=== PATIENT | female | born 1965 | race Caucasian/White ===

== ENCOUNTER 2016-02-25 09:00 | Outpatient (CLI) | payer OTHER | END 2016-02-25 09:01 | disposition home or self-care (01) | DX: R30.0 Dysuria (principal) ==

== ENCOUNTER 2016-03-03 09:11 | Outpatient (CLI) | payer OTHER | END 2016-03-03 09:12 | disposition home or self-care (01) | DX: R00.2 Palpitations (principal) ==

== ENCOUNTER 2017-02-07 16:45 | Outpatient (CLI) | payer OTHER ==
--- NOTE | 2017-02-07 18:51 | MRI Preliminary Report ---
Exam: MRI FEMUR/THIGH RT W/O IMPRESSION: Complete tear of the right hamstring tendon origin with at least 5 cm of retraction. RADIA MUSCULOSKELETAL RADIOLOGY SECTION The call report notification system was initiated by Dr. Naima Diane at 18:43 hrs on 02/07/17. The above findings were discussed with Pina Pradhan by Dr. Naima Diane at 18:49 hrs on 02/07/17. SITE ID: [id number]
--- NOTE | 2017-02-07 19:01 | MRI Report ---
EXAM: RIGHT FEMUR/THIGH MRI WITHOUT CONTRAST EXAM DATE: 02/07/2017 06:17 PM. CLINICAL HISTORY: Possible right thigh muscle tear. Fall. Hyperextension injury in the right leg. COMPARISON: None. TECHNIQUE: Multiplanar, multisequence T1-weighted and fluid-sensitive sequences of the femur/thigh wi thout contrast. Other: None. FINDINGS: Bones: No fractures or subluxations. No marrow edema. No bone lesions. Joint Spaces: Visualized portions of the hip and knee joints are unremarkable on these large field-of -view images. Muscles/tendons: The right hamstring tendon origin is completely torn. There is retraction of at leas t 5 cm. Edema is seen at the gap as well as within the proximal hamstring musculature. Some hematoma is seen in the fascial plane near the myotendinous junction. Some mild muscle edema is seen in the me dial adductor muscles. Other: The visualized sciatic and femoral nerves are unremarkable. The subcutaneous tissues are unrem arkable. IMPRESSION: Complete tear of the right hamstring tendon origin with at least 5 cm of retraction. RADIA MUSCULOSKELETAL RADIOLOGY SECTION The call report notification system was initiated by Dr. Naima Diane at 18:43 hrs on 02/07/17. The above findings were discussed with Pina Pradhan by Dr. Naima Diane at 18:49 hrs on 02/07/17. Referring Provider Line: [phone] SITE ID: [id number]
== END 2017-02-07 16:46 | disposition home or self-care (01) ==
LOC: DI 16:45
PROVIDERS: ATTEND Family Medicine
DX: S76.811A Strain of other specified muscles, fascia and tendons at thigh level, right thigh, initial encounter (principal)

== ENCOUNTER 2017-05-23 15:30 | Outpatient (CLI) | payer OTHER | END 2017-05-23 15:31 | disposition home or self-care (01) | LOC: SC 15:30 | PROVIDERS: ATTEND Internal Medicine Pulmonary Disease | DX: G47.10 Hypersomnia, unspecified (principal); R53.83 Other fatigue; R06.83 Snoring | CPT/HCPCS: 99203; 99212 ==

== ENCOUNTER 2017-08-02 20:37 | Outpatient (CLI) | payer OTHER | END 2017-08-02 20:38 | disposition home or self-care (01) | LOC: SC 20:37 | PROVIDERS: ATTEND Internal Medicine Pulmonary Disease | DX: G47.33 Obstructive sleep apnea (adult) (pediatric) (principal) | CPT/HCPCS: 95810 ==

== ENCOUNTER 2017-08-31 10:17 | Outpatient (CLI) | payer OTHER | END 2017-08-31 10:18 | disposition home or self-care (01) | LOC: SC 10:17 | PROVIDERS: ATTEND Nurse Practitioner Family | DX: G47.33 Obstructive sleep apnea (adult) (pediatric) (principal) | CPT/HCPCS: 99212; 99215 ==

== ENCOUNTER 2017-10-11 08:26 | Outpatient (CLI) | payer OTHER | END 2017-10-11 08:27 | disposition home or self-care (01) | LOC: DI 08:26 | PROVIDERS: ATTEND Physician Assistant | DX: R60.9 Edema, unspecified (principal); R01.1 Cardiac murmur, unspecified | CPT/HCPCS: 93306 ==

== ENCOUNTER 2017-10-25 15:47 | Outpatient (CLI) | payer OTHER | END 2017-10-25 15:48 | disposition home or self-care (01) | LOC: SC 15:47 | PROVIDERS: ATTEND Nurse Practitioner Family | DX: G47.33 Obstructive sleep apnea (adult) (pediatric) (principal) | CPT/HCPCS: 99212; 99214 ==

== ENCOUNTER 2018-08-07 15:39 | Outpatient (CLI) | payer OTHER ==
--- NOTE | 2018-08-08 10:18 | Mammography Report ---
Reason: SCREENING MAMMO Procedure Date: 08/07/2018 Accession Number: [id number] / [id number] Procedure: SCOT - Screening Mammo w/Pj CPT Code: FULL RESULT: EXAM: Screening Mammo w/Pj DATE: 08/07/2018 4:25 PM CLINICAL HISTORY: Routine screening TECHNIQUE: (B) - Bilateral CC and MLO views were obtained. COMPARISON: 01/15/2016, 01/05/2015, 01/15/2013 PARENCHYMAL PATTERN: (A) - The breasts demonstrate scattered fibroglandular densities bilaterally. FINDINGS: No significant interval change. There are no suspicious masses, calcifications, or areas of distortion. IMPRESSION: Negative examination. BI-RADS category 1. RECOMMENDATION: (ANNUAL) - Recommend routine annual screening mammography. BI-RADS CATEGORY: (1) - Negative. STANDARD QUALIFYING STATEMENTS: 1. This examination was not reviewed with the aid of Computer-Aided Detection (CAD). 2. A negative or benign imaging report should not preclude biopsy if clinically suspicious findings are present. 3. Dense breasts may obscure an underlying neoplasm. 4. This examination was reviewed with the aid of 3D breast imaging (tomosynthesis).
== END 2018-08-07 15:40 | disposition home or self-care (01) ==
LOC: DI 15:39
DX: Z12.31 Encounter for screening mammogram for malignant neoplasm of breast (principal)
CPT/HCPCS: 77063; 77067

== ENCOUNTER 2018-11-27 16:14 | Outpatient (CLI) | payer OTHER ==
[2018-11-27 17:14] VITALS: BP 124/70
--- NOTE | 2018-11-27 17:14 | SLEEP CARE CONSULTATION ---
Information from patient questionnaire entered by Jazmine Dennis. I have reviewed and concur with the information entered by Jazmine Dennis. This document represents the service I personally performed and the decisions made by me, Samia Leroy, RN, MSN, [employer] APPRENTICE. History of Present Illness Previous diagnosis: Severe, Obstructive Sleep Apnea-Hypopnea Syndrome AHI: 40.3 Reason for CPAP/BiPAP follow up: other (10 month ) Equipment type: CPAP Equipment obtained from: [facility] Mask style: Nasal pillows Mask brand: Resmed Backup mask available: No (keep current mask when replaced for a spare. ) Last cushion change: a week ago CPAP Compliance Data - Data Reviewed with Patient Average duration of nightly device use: 6.4 Compliance rate %: 95.6 (180 days) Current pressure setting (cmH2O): 4-10 Humidity settin Heated hose settin Average residual AHI: 0.6 Average large leak: 46 sec Subjective Patient concerns: reports: aerophagia (most mornings and resolves by noon- mild distention and burping), air blowing in eyes (mask dislodging with new updated headgear ), mask leak noise (a couple times a week. ). denies: mask discomfort, condensation in mask/hose, nasal congestion, dry mouth, nose, throat, epistaxis Observed to snore while using device: No Current pressure setting perceived as: too high On therapy, patient: reports: awakening more refreshed, being more awake and alert during the day, more rested overall. denies: drowsiness while driving Initial [place] Sleepiness Scale score: 7 Current [place] Sleepiness Scale score: 3 Allergies and Home Medications Known drug allergies: Yes (codeine, pencillin, sulfa) Home medication list reviewed: Yes Allergy and home medication list: Furosemide 10mg tab one daily Zyrtec 10mg tab one daily PRN Review of Systems Review of systems same as previous: Yes Physical Exam Blood Pressure: 124/70 Cuff size: long Heart Rate: 80 O2 Saturation: 98 Height: 5 ft 2 in Weight: 217 lb 6.4 oz Body Mass Index: 39.7 BMI Classification: Obesity Class 2 Impression and Plan 1. Obstructive Sleep Apnea-Hypopnea Syndrome, severe, with good treatment compliance and good apnea control. On CPAP therapy, the patient is more rested overall. However, with weight loss she has been experiencing daily aerophagia symptoms and waking with the presure too high at times so I will reduce her autoCPAP pressure to 4-8cmH20. She is to contact if symptoms persist. She was at a lower weight and is working on losing more weight again. Thus I discussed how continued weight loss will lower her apnea risk as well as her CPAP pressure. Symptoms to report for further report for further adjustment. Her current weight loss lowered her BMI to 39. We looked at BMI with her goal is to get to 175. I explained how her continued weight loss will reduce her BMI and overall health risks as well. For mask concerns, she is to contact [employer] to see if other mask options before ordering. I showed her several mask samples. She was also advised to contact [employer] customer service about the changes in mask that are not as comfortable. Patient's apnea severity and rationale for treatment to reduce apnea, improve sleep quality and reduce cardiovascular and cerebrovascular events was reviewed. I also reviewed the benefit of consistent device use of CPAP for hypertension, depression/anxiety . * * Change CPAP pressure to 4-8 cmH2O * Notify me if snoring with mask or feeling that the pressure is too much or too little * Continue to lose weight * Consider changing mask style. * Return for follow up in 1 year , or sooner if concerns arise I spent 100% of this 30 minute visit face to face with the patient with greater than 50% of this was spent time counseling the patient and coordination of care.
== END 2018-11-27 16:15 | disposition home or self-care (01) ==
LOC: SC 16:14
PROVIDERS: ATTEND Nurse Practitioner Family
DX: G47.33 Obstructive sleep apnea (adult) (pediatric) (principal); E66.9 Obesity, unspecified; Z68.39 Body mass index [BMI] 39.0-39.9, adult
CPT/HCPCS: 99212; 99214

== ENCOUNTER 2019-12-05 17:12 | Outpatient (CLI) | payer OTHER ==
--- NOTE | 2019-12-06 08:39 | Ultrasound Report ---
PROCEDURE: Chest INDICATIONS: LT SUPRACLAVICULAR LIPOMS TECHNIQUE: Real-time scanning was performed, and a suitable site was marked by the cma or lpn for thoracentesis to be performed by the referring clinician. COMPARISON: None. FINDINGS: Possible lipoma left supraclavicular area. Sonographic evaluation in the area of current c linical concern did not identify a specific area of lipoma or other cystic or solid mass in the left supraclavicular area. Several small lymph nodes, normal in morphology, were incidentally noted in thi s general region. The largest node visualized measured 0.6 x 1.2 x 2.2 cm. IMPRESSION: A lipoma is not found, and an underlying cystic or solid mass is not found. A follow-up by CT scannin g with contrast may be warranted for more accurate visualization of the region. Reviewed by: Ivan Marshall MD on 12/06/2019 8:38 AM PDT Approved by: Ivan Marshall MD on 12/06/2019 8:38 AM PDT Station ID: [id number]
== END 2019-12-05 17:13 | disposition home or self-care (01) ==
LOC: DI 17:12
PROVIDERS: ATTEND Physician Assistant
DX: D17.9 Benign lipomatous neoplasm, unspecified (principal)
CPT/HCPCS: 76604

== ENCOUNTER 2019-12-31 16:36 | Outpatient (CLI) | payer OTHER ==
--- NOTE | 2019-12-31 16:55 | SLEEP CARE CONSULTATION ---
Information from patient questionnaire entered by Genesis Gotti. I have reviewed and concur with the information entered by Genesis Gotti. This document represents the service I personally performed and the decisions made by , Nury Denson ARNP. History of Present Illness Service Date and Time: 12/31/2019 1636 Previous diagnosis: Severe, Obstructive Sleep Apnea-Hypopnea Syndrome AHI: 40.3 Reason for follow up: annual (last seen 11/2018) Equipment type: CPAP Equipment obtained from: [facility] (getting supplies as needed) Mask style: Nasal pillows Backup mask available: No (will keep mask when it is replaced for a backup) Last cushion change: last week Year and Where: 2017 [facility] Type of Sleep Study: Polysomnography HPI additional information: SISSY BRUNO was diagnosed to have severe, AHI 40.3, obstructive sleep apnea- hypopnea syndrome and returned today for CPAP therapy annual follow-up. CPAP Compliance Data - Data Reviewed with Patient Average duration of nightly device use: 7 h 3 min Compliance rate %: 99.4 Current pressure setting (cmH2O): 4-8 Humidity settin Heated hose settin Average residual AHI: 0.9 Central apnea: 0.0 Obstructive apnea: 0.0 Average large leak: 3 min 4 sec Subjective Patient concerns: reports: condensation in mask/hose. denies: aerophagia, mask discomfort, air blowing in eyes, mask leak noise, nasal congestion, dry mouth, nose, throat, epistaxis, other Observed to snore while using device: No Current pressure setting perceived as: comfortable On therapy, patient: reports: sleeping better, awakening more refreshed, being more awake and alert during the day, more rested overall. denies: drowsiness while driving Initial [place] Sleepiness Scale score: 7 (in 2018) Current [place] Sleepiness Scale score: 0 Allergies and Home Medications Home medication list reviewed: Yes (no changes) Review of Systems Review of systems same as previous: Yes (no changes) Physical Exam Heart Rate: 73 O2 Saturation: 96 Height: 5 ft 2 in Weight: 244 lb Body Mass Index: 44.6 BMI Classification: Morbidly Obese Impression and Plan 1. Obstructive Sleep Apnea-Hypopnea Syndrome, severe, with good treatment compliance and good apnea control. On CPAP therapy, the patient has better sleep quality and is more rested overall. She has been getting occasional dry mouth. I reviewed with patient that oral dryness can be reduced by adjusting humidity setting higher or heated hose lower or by adjusting both settings. Patient's apnea severity and rationale for treatment to reduce apnea, improve sleep quality and reduce cardiovascular and cerebrovascular events was reviewed. I also reviewed the benefit of consistent device use of CPAP for hypertension, depression and anxiety. Patient has gained weight due to the current Covid pandemic restrictions. Currently patients BMI is 44.6. Obesity increases the risk of apnea, CPAP pressure requirements and overall health risks especially cardiovascular and diabetes. Thus patient is advised to lose weight. * Continue auto CPAP pressure at 4-8 cmH2O * Notify me if snoring with mask or feeling that the pressure is too much or too little * Attempt to lose weight * Call this office if any problems using CPAP * Return for follow up in 1 year, or sooner if concerns arise Counseling Topics: Spare mask, Weight loss health impact Visit Type: In Office Time Spent with Patient (minutes): 15 Provider Statement: I spent 100% of the Face to Face Visit with the patient with greater than 50% spent counseling the patient and coordination of care.
== END 2019-12-31 16:37 | disposition home or self-care (01) ==
LOC: SC 16:36
PROVIDERS: ATTEND Nurse Practitioner Family
DX: G47.33 Obstructive sleep apnea (adult) (pediatric) (principal); E66.01 Morbid (severe) obesity due to excess calories; Z68.41 Body mass index [BMI] 40.0-44.9, adult
CPT/HCPCS: 99212; 99213

== ENCOUNTER 2020-03-22 08:00 | Outpatient (CLI) | payer OTHER | END 2020-03-22 23:59 | disposition home or self-care (01) | LOC: LAB.R 08:00 | PROVIDERS: ATTEND Family Medicine | DX: R39.9 Unspecified symptoms and signs involving the genitourinary system (principal) | CPT/HCPCS: 87086 ==

== ENCOUNTER 2020-08-20 08:22 | Outpatient (CLI) | payer OTHER ==
--- NOTE | 2020-08-21 11:36 | Mammography Report ---
BILATERAL DIGITAL SCREENING MAMMOGRAM 3D/2D: 08/20/2020 CLINICAL: Routine screening. Comparison is made to exams dated: 08/07/2018 mammogram, 01/15/2016 mammogram, 01/05/2015 mammogram, mammogram, 01/17/2011 ultrasound, and 01/17/2011 mammogram - [facility]. There are scattered fibroglandular elements in both breasts. No significant masses, calcifications, or other findings are seen in either breast. There has been no significant interval change. IMPRESSION: NEGATIVE There is no mammographic evidence of malignancy. A 1 year screening mammogram is recommended. This exam was interpreted at Station ID: [id number]. NOTE: For mammograms, a report in lay terms will be sent to the patient. Approximately 15% of breast malignancies will not be visualized mammographically. In the management of a palpable breast mass, a negative mammogram must not discourage biopsy of a clinically suspicious lesion. Electronically Signed By: Farhat Kline M.D., jr/mariella:08/20/2020 10:43:36 ACR BI-RADS Category 1: Negative 3341F PARENCHYMAL PATTERN: (A) - The breast(s) demonstrate(s) scattered fibroglandular densities. BI-RADS CATEGORY: (1) - 1 RECOMMENDATION: (ANNUAL) - Recommend routine annual screening mammography. [id number] 1 year screening LATERALITY: (B)
== END 2020-08-20 08:23 | disposition home or self-care (01) ==
LOC: DI 08:22
DX: Z12.31 Encounter for screening mammogram for malignant neoplasm of breast (principal)

== ENCOUNTER 2020-08-31 12:26 | Outpatient (CLI) | payer OTHER ==
--- NOTE | 2020-08-31 17:32 | Ultrasound Report ---
PROCEDURE: Head or Neck Soft Tissue INDICATIONS: CERVICAL LYMPHADENOPATHY TECHNIQUE: Real time scanning was performed of the neck region of interest, with image documentation . COMPARISON: None. FINDINGS: Multiple grayscale and color Doppler images of the neck were acquired. Targeted evaluation of the palpable area of concern demonstrates multiple enlarged cervical chain lymph nodes in the left neck, inferior to the left submandibular gland. Several of these enlarged lymph nodes demonstrate lo ss of central fatty hilum and reniform shape with the largest 2 measuring 1.4 x 1.3 x 1.4 cm and 2.0 x 0.8 x 1.4 cm. Cortical thickness measures up to 6 mm. For comparison on the right side, multiple pr ominent lymph nodes are also seen with preservation of reniform morphology and central fatty hilum. H owever, one demonstrates loss of fatty hilum measuring approximately 1.2 x 0.7 x 0.9 cm. No focal mas s lesions identified. IMPRESSION: Multiple left-sided cervical chain lymph nodes correlating with patient directed palpable area of con cern which localized just inferior to the level of the submandibular gland. Several of these demonstr ate loss of central fatty hilum and reniform morphology. Additionally, comparison imaging of the righ t neck demonstrated 1 prominent lymph node also demonstrating loss of central fatty hilum. Although t hese may represent reactive lymphadenopathy, malignant etiologies not excluded. Recommend further berenice racterization with contrast-enhanced CT of the neck. Reviewed by: David Darling MD on 08/31/2020 5:31 PM PDT Approved by: David Darling MD on 08/31/2020 5:31 PM PDT Station ID: [id number]
== END 2020-08-31 12:27 | disposition home or self-care (01) ==
LOC: DI 12:26
PROVIDERS: ATTEND Family Medicine
DX: R59.0 Localized enlarged lymph nodes (principal)

== ENCOUNTER 2020-09-17 15:22 | Outpatient (CLI) | payer OTHER ==
[2020-09-17] MEDS ORDERED: IOPAMIDOL-300 100 ML VIAL ONE (15:48)
[2020-09-17] MEDS ORDERED: IOPAMIDOL-300 100 ML VIAL IVP ONE (18:40)
--- NOTE | 2020-09-18 08:48 | CT Report ---
PROCEDURE: SOFT TISSUE NECK W INDICATIONS: CERVICAL LYMPHADENOPATHY CONTRAST: IV CONTRAST: Isovue 300 ml: 100 PO CONTRAST: *NO PO CONTRAST TECHNIQUE: After the administration of intravenous contrast, 3.0 mm axial sections acquired from the sella to th e aortic arch. Additional oblique axial 3.0 mm sections acquired through the pharynx. 3 mm thick co nhan reformats were generated. For radiation dose reduction, the following was used: automated exp osure control, adjustment of mA and/or kV according to patient size. COMPARISON: Ultrasound dated 08/31/2020 FINDINGS: Image quality: Excellent. Lymph nodes: There are asymmetrically enlarged left-sided cervical lymph nodes, for example left leve l 2 lymph node measures 1.5 x 1.0 cm on image 66/3. Left level 3 lymph node measuring 1.5 x 0.8 cm im age 71/3. Posterior jugular chain borderline enlarged lymph node on the left measuring 1.0 x 0.6 cm i mage 75/3. These findings correspond to the ultrasound appearance of the prior study. Vessels: Visualized vasculature appears patent. Neck spaces: The oropharynx, nasopharynx, and pharynx demonstrate no mucosal lesions. The vocal cor ds, false vocal cords, pyriform sinuses, epiglottis, vallecula, and tongue base all appear normal. E xtramucosal spaces appear unremarkable. Glands: The parotid and submandibular glands appear normal. The thyroid is normal in size and there are no incidental findings. Miscellaneous: Visualized brain and orbits appear normal. Lung apices appear clear. Superficial so ft tissues appear normal. Bones: No suspicious bony lesions. Visualized sinuses and mastoids appear unremarkable. IMPRESSION: Multiple, mildly enlarged left cervical lymph nodes as detailed above, technically nonspecific etiolo gy. This could be reactive, versus metastatic disease or lymphoma. Please correlate clinically and re commend clinical management. CLINICAL RECOMMENDATION STATEMENTS: In patients <35 years with an ITN detected on CT, MRI, or extrathyroidal ultrasound, the Committee re commends further evaluation with dedicated thyroid ultrasound if the nodule is ?1 cm and has no suspi cious imaging features, and if the patient has normal life expectancy. In patients ?35 years with an ITN detected on CT, MRI, or extrathyroidal ultrasound, the Committee re commends further evaluation with dedicated thyroid ultrasound if the nodule is ?1.5 cm and has no juliana picious imaging features, and if the patient has normal life expectancy. (ACR, 2014) Reviewed by: Cristo Trivedi MD on 09/18/2020 8:47 AM PDT Approved by: Cristo Trivedi MD on 09/18/2020 8:47 AM PDT Station ID: [id number]
== END 2020-09-17 15:23 | disposition home or self-care (01) ==
LOC: DI 15:22
PROVIDERS: ATTEND Family Medicine
DX: R59.0 Localized enlarged lymph nodes (principal)
CPT/HCPCS: 70491; Q9967

== ENCOUNTER 2020-10-22 16:19 | Outpatient (CLI) | payer OTHER ==
--- NOTE | 2020-10-22 16:56 | SLEEP CARE CONSULTATION ---
Information from patient questionnaire entered by Genesis Gotti. I have reviewed and concur with the information entered by Genesis Gotti. This document represents the service I personally performed and the decisions made by , Nury Denson ARNP. History of Present Illness Service Date and Time: 10/22/2020 1619 Previous diagnosis: Severe, Obstructive Sleep Apnea-Hypopnea Syndrome AHI: 40.3 Reason for follow up: other (10-month followup - CPAP recall) Equipment type: CPAP Equipment obtained from: [facility] (getting supplies but nothing but problems) Mask style: Nasal pillows Backup mask available: No Year and Where: 2018 [facility] Type of Sleep Study: Polysomnography HPI additional information: SISSY BRUNO was diagnosed to have severe, AHI 40.3, obstructive sleep apnea- hypopnea syndrome and returned today for CPAP therapy 10 month follow-up. CPAP Compliance Data - Data Reviewed with Patient Average duration of nightly device use: 6 h 42 min Compliance rate %: 96.1 Current pressure setting (cmH2O): 4-8 Humidity setting: Off Heated hose settin Average residual AHI: 1.1 Average large leak: 1 min 46 sec Subjective Missed days of use due to: reports: other (Recall of equipment) Patient concerns: reports: air blowing in eyes. denies: aerophagia, mask discomfort, mask leak noise, condensation in mask/hose, nasal congestion, dry mouth, nose, throat, epistaxis, other Observed to snore while using device: No Current pressure setting perceived as: comfortable On therapy, patient: reports: sleeping better, awakening more refreshed, being more awake and alert during the day, more rested overall. denies: drowsiness while driving Initial [place] Sleepiness Scale score: 7 (in 2018) Current [place] Sleepiness Scale score: 12 Allergies and Home Medications Home medication list reviewed: Yes (no changes) Review of Systems Review of systems same as previous: No (Lump in neck) Physical Exam Heart Rate: 101 O2 Saturation: 97 Height: 5 ft 2 in Weight: 250 lb Body Mass Index: 45.7 BMI Classification: Morbidly Obese Impression and Plan 1. Obstructive Sleep Apnea-Hypopnea Syndrome, severe, with good treatment compliance and good apnea control. On CPAP therapy, the patient has better sleep quality and is more rested overall. Patient is here to get a prescription to update her recalled device. She has found a lump in her neck in the recent months before the recall was announced. Patient has already registered their device for the recall. If patient has an older device that is not on the recall they may switch to using that in the meantime. Patient has spoken with her insurance and thinks they will replace her device. I will write a prescription for a replacement device and have the patient follow up one month after obtaining new device. Patient was encouraged to lose weight for their overall health and to reduce apneas. Patient voiced understanding and agreement with plan. Patient's apnea severity and rationale for treatment to reduce apnea, improve sleep quality and reduce cardiovascular and cerebrovascular events was reviewed. I also reviewed the benefit of consistent device use of CPAP for hypertension, depression and anxiety. * Continue auto CPAP pressure at 4-8 cmH2O * Update/replacment device for machine on recall * Update supplies as needed * Notify me if snoring with mask or feeling that the pressure is too much or too little * Attempt to lose weight * Call this office if any problems using CPAP * Return for follow up one month after obtaining new device, or sooner if concerns arise Counseling Topics: Spare mask, Weight loss health impact Visit Type: In Office Time Spent with Patient (minutes): 20 Provider Statement: I spent 100% of the Face to Face Visit with the patient with greater than 50% spent counseling the patient and coordination of care.
== END 2020-10-22 16:20 | disposition home or self-care (01) ==
LOC: SC 16:19
PROVIDERS: ATTEND Nurse Practitioner Family
DX: G47.33 Obstructive sleep apnea (adult) (pediatric) (principal); E66.01 Morbid (severe) obesity due to excess calories; Z68.42 Body mass index [BMI] 45.0-49.9, adult
CPT/HCPCS: 99212; 99213

== ENCOUNTER 2021-01-27 16:15 | Outpatient (CLI) | payer OTHER ==
[2021-01-27 16:44] VITALS: BP 135/75
--- NOTE | 2021-01-27 16:44 | SLEEP CARE CONSULTATION ---
Information from patient questionnaire entered by Carlee Jefferson MA. I have reviewed and concur with the information entered by Carlee Jefferson MA. This document represents the service I personally performed and the decisions made by , Nury Denson ARNP. History of Present Illness Service Date and Time: 01/27/2021 1615 Previous diagnosis: Severe, Obstructive Sleep Apnea-Hypopnea Syndrome AHI: 40.3 Reason for follow up: first compliance (1ST COMPLIANCE , SET UP 12/22 , ISA ) Equipment type: CPAP Equipment obtained from: [facility] (getting supplies but nothing but problems) Mask style: Nasal pillows Backup mask available: No (when she gets next supplies) Last cushion change: 1 week Year and Where: 2017 [facility] Type of Sleep Study: Polysomnography HPI additional information: SISSY BRUNO was diagnosed to have mild, AHI 40.3, obstructive sleep apnea- hypopnea syndrome and returned today for CPAP therapy first compliance follow- up. Sleep Study - Results Type of Sleep Study: Polysomnography Year and Where: 2017 [facility] CPAP Compliance Data - Data Reviewed with Patient Average duration of nightly device use: 6 hours 51 minutes Compliance rate %: 98 Current pressure setting (cmH2O): 4-8 Average residual AHI: 0.2 Central apnea: 0.0 Obstructive apnea: 0.0 Subjective Missed days of use due to: reports: other (PRADO RECALL,) Patient concerns: reports: air blowing in eyes. denies: aerophagia, mask discomfort, mask leak noise, condensation in mask/hose, nasal congestion, dry mouth, nose, throat, epistaxis, other Observed to snore while using device: No Current pressure setting perceived as: comfortable On therapy, patient: reports: sleeping better, awakening more refreshed, being more awake and alert during the day, more rested overall. denies: drowsiness while driving Initial Marshall Sleepiness Scale score: 7 (in 2018) Current Marshall Sleepiness Scale score: 4 Allergies and Home Medications Known drug allergies: Yes (C SUFA & CODEINE) Home medication list reviewed: Yes (no changes) Review of Systems Review of systems same as previous: Yes (no changes) Physical Exam Vital signs obtained and entered by: Micki HOLLEY Blood Pressure: 135/75 (RIGHT) Cuff size: wrist Heart Rate: 82 O2 Saturation: 95 (PAPER MASK) Height: 5 ft 2 in Weight: 250 lb (WITH CLOTHES) Body Mass Index: 45.7 BMI Classification: Morbidly Obese Impression and Plan 1. Obstructive Sleep Apnea-Hypopnea Syndrome, severe, with excellent treatment compliance and excellent apnea control. On CPAP therapy, the patient has better sleep quality and is more rested overall. Patient is satisfied with current CPAP therapy and has significant improvement of her AHI. She likes the new machine and is working well for her. Patient was encouraged to lose weight for their overall health and to reduce apneas. Patient's apnea severity and rationale for treatment to reduce apnea, improve sleep quality and reduce cardiovascular and cerebrovascular events was reviewed. I also reviewed the benefit of consistent device use of CPAP for hypertension, depression and anxiety. * Continue auto CPAP pressure at 4-8 cmH2O * Notify me if snoring with mask or feeling that the pressure is too much or too little * Attempt to lose weight * Call this office if any problems using CPAP * Return for follow up in 1 year, or sooner if concerns arise Counseling Topics: Spare mask, Weight loss health impact Visit Type: In Office Time Spent with Patient (minutes): 11 Provider Statement: I spent 100% of the Face to Face Visit with the patient with greater than 50% spent counseling the patient and coordination of care.
== END 2021-01-27 16:16 | disposition home or self-care (01) ==
LOC: SC 16:15
PROVIDERS: ATTEND Nurse Practitioner Family
DX: G47.33 Obstructive sleep apnea (adult) (pediatric) (principal); E66.01 Morbid (severe) obesity due to excess calories; Z68.42 Body mass index [BMI] 45.0-49.9, adult
CPT/HCPCS: 99212

== ENCOUNTER 2021-07-26 08:00 | Outpatient (CLI) | payer OTHER ==
--- NOTE | 2021-07-27 11:51 | XRAY Report ---
PROCEDURE: Knee 3 View RT INDICATIONS: SPRAIN OF R MCL TECHNIQUE: 3 views of the right knee(s) were acquired. COMPARISON: None. FINDINGS: Bones: No fractures or dislocations. Moderate medial compartment joint space loss. Slight lateral garcia bluxation of the patella. No suspicious bony lesions. Soft tissues: No joint effusion. No suspicious soft tissue calcifications. IMPRESSION: 1. Moderate medial compartment joint space loss. 2. No visible joint effusion. Reviewed by: Kecia Au MD on 07/27/2021 11:49 AM PDT Approved by: Kecia Au MD on 07/27/2021 11:49 AM PDT Station ID: [id number]
== END 2021-07-26 23:59 | disposition home or self-care (01) ==
LOC: DI.N 08:00
PROVIDERS: ATTEND Emergency Medicine
DX: M25.861 Other specified joint disorders, right knee (principal)

== ENCOUNTER 2022-04-19 08:04 | Outpatient (CLI) | payer OTHER ==
[2022-04-19 08:42] VITALS: BP 130/72
--- NOTE | 2022-04-19 08:42 | SLEEP CARE CONSULTATION ---
Information from patient questionnaire entered by Brooke Sandoval. I have reviewed and concur with the information entered by Brooke Sandoval. This document represents the service I personally performed and the decisions made by me, Nury Denson ARNP. History of Present Illness Service Date and Time: 04/19/2022 0804 Previous diagnosis: Severe, Obstructive Sleep Apnea-Hypopnea Syndrome AHI: 40.3 Reason for follow up: annual (LAST SEEN 01/2021) Equipment type: CPAP (RESMED Airsense 11 s/u 11/2020) Equipment obtained from: [facility] (getting supplies) Mask style: Nasal pillows Backup mask available: Yes (old mask) Last cushion change: Monday Year and Where: 2017 [facility] Type of Sleep Study: Polysomnography HPI additional information: SISSY BRUNO was diagnosed to have severe, AHI 40.3, obstructive sleep apnea-hypopnea syndrome and returned today for CPAP therapy annual follow-up. Sleep Study - Results Type of Sleep Study: Polysomnography Year and Where: 2017 [facility] CPAP Compliance Data - Data Reviewed with Patient Average duration of nightly device use: 7 HRS 8 MIN Compliance rate %: 100 (10/20/21-04/17/22; 180/180 days used) Current pressure setting (cmH2O): 4-8 (avg 8.0) Average residual AHI: 0.2 Central apnea: 0.0 Obstructive apnea: 0.0 Average large leak: 0.5 LPM Subjective Patient concerns: reports: air blowing in eyes, mask leak noise, dry mouth, nose, throat. denies: aerophagia, mask discomfort, condensation in mask/hose, nasal congestion, epistaxis Observed to snore while using device: Yes (a few times) Current pressure setting perceived as: too low On therapy, patient: reports: sleeping better, awakening more refreshed, being more awake and alert during the day, more rested overall. denies: drowsiness while driving Initial Hudson Sleepiness Scale score: 7 (in 2018) Current Hudson Sleepiness Scale score: 3 (04/19/22) Allergies and Home Medications Known drug allergies: Yes (codiene, penicillin, sulfa) Drug allergies reviewed: Yes Home medication list reviewed: Yes (no changes) Allergy and home medication list: Allergies codeine Allergy (Verified 04/18/22 08:34) Hives Penicillins Allergy (Verified 04/18/22 08:34) Hives Sulfa (Sulfonamide Antibiotics) Allergy (Verified 04/18/22 08:34) Hives Review of Systems Review of systems same as previous: Yes (no changes) Physical Exam Vital signs obtained and entered by: BROOKE Louise MA Blood Pressure: 130/72 (LEFT ARM) Cuff size: long Heart Rate: 79 O2 Saturation: 97 Height: 5 ft 2 in Weight: 259 lb 3.2 oz Body Mass Index: 47.4 BMI Classification: Morbidly Obese Impression and Plan 1. Obstructive Sleep Apnea-Hypopnea Syndrome, severe, with good treatment compliance and good apnea control. On CPAP therapy, the patient has better sleep quality and is more rested overall. Patient has significant improvement of their sleep apnea and is satisfied with current CPAP therapy. Patient has been having mild oral dryness. I advised her to adjust the humidity on her machine to accommodate for this. She voiced understanding. She states the air leaks and air in her eyes is just from turning over and her mask dislodging. She states she feels the pressure is a little too low and would appreciate more pressure. I will adjust her pressure to 4-9 cm H2O for patient comfort. Patient will let me know if the pressure becomes uncomfortable. Patient's apnea severity and rationale for treatment to reduce apnea, improve sleep quality and reduce cardiovascular and cerebrovascular events was reviewed. I also reviewed the benefit of consistent device use of CPAP for hypertension, depression and anxiety. 2. Obesity, unspecified. Currently patients BMI is 47.4. Obesity increases the risk of apnea, CPAP pressure requirements and overall health risks especially cardiovascular and diabetes. Thus patient is advised to lose weight. * Change auto CPAP pressure to 4-9 cmH2O * Update supplies * Notify me if snoring with mask or feeling that the pressure is too much or too little * Attempt to lose weight * Call this office if any problems using CPAP * Return for follow up in 1 year, or sooner if concerns arise Counseling Topics: Spare mask, Weight loss health impact Prescriptions: Device supplies Visit Type: In Office Time Spent with Patient (minutes): 20 Provider Statement: I spent 100% of the Face to Face Visit with the patient with greater than 50% spent counseling the patient and coordination of care.
== END 2022-04-19 08:05 | disposition home or self-care (01) ==
LOC: SC 08:04
PROVIDERS: ATTEND Nurse Practitioner Family
DX: G47.33 Obstructive sleep apnea (adult) (pediatric) (principal); E66.01 Morbid (severe) obesity due to excess calories; Z68.42 Body mass index [BMI] 45.0-49.9, adult
CPT/HCPCS: 99212; 99213

== ENCOUNTER 2022-12-14 18:12 | Outpatient (CLI) | payer OTHER ==
--- NOTE | 2022-12-15 10:12 | Ultrasound Report ---
PROCEDURE: Pelvic w/Transvaginal INDICATIONS: POST MENOPAUSAL BLEEDING TECHNIQUE: Real-time scanning was performed of the pelvic organs, with image documentation. Additional endovagi nal scanning was necessary due to incomplete visualization of the adnexal and endometrial structures by transabdominal scanning. COMPARISON: None. FINDINGS: Technical note examination is markedly limited secondary to patient body habitus. Uterus: Uterus is anteverted and normal in size at 7.2 x 5.3 x 4.5 cm. The myometrium is heterog eneous. The endometrium measures 10.3 mm in combined thickness. The endometrium is complex and there is a cystic foci present measuring 2 x 1 cm in maximal dimension. There is a small calcification in the posterior uterus measuring 7 mm in maximal dimension which may represent small calcified uterine fibroid. The ovaries are not definitely visualized. Other: No pathologic free abdominal or pelvic fluid. IMPRESSION: 1. Complex thickened appearing endometrium with cystic foci measuring 10.3 mm in maximal dimension. I f further evaluation is indicated endometrial biopsy may be of further clinical value. 2. Probable small calcified posterior uterine fibroid measuring 7 mm. 3. Technically limited examination secondary to patient body habitus. Reviewed by: Jori Jordan MD on 12/15/2022 10:11 AM PST Approved by: Jori Jordan MD on 12/15/2022 10:11 AM PST Station ID: [id number]
== END 2022-12-14 18:13 | disposition home or self-care (01) ==
LOC: DI 18:12
PROVIDERS: ATTEND Family Medicine
DX: N95.0 Postmenopausal bleeding (principal); R93.89 Abnormal findings on diagnostic imaging of other specified body structures

== ENCOUNTER 2023-02-10 07:45 | Outpatient (CLI) | payer OTHER ==
--- NOTE | 2023-02-13 11:46 | Mammography Report ---
BILATERAL DIGITAL SCREENING MAMMOGRAM 3D/2D: 02/10/2023 CLINICAL: Routine screening. Comparison is made to exams dated: 08/20/2020 mammogram, 08/07/2018 mammogram, 01/15/2016 mammogram, and 01/05/2015 mammogram - [facility]. There are scattered areas of fibroglandular density in both breasts (category b / 25%-50% glandular t issue). There is possible architectural distortion in the right breast at 11 o'clock posterior depth. This i s more prominent, though present previously. No other significant masses, calcifications, or other findings are seen in either breast. IMPRESSION: INCOMPLETE: NEEDS ADDITIONAL IMAGING EVALUATION The possible architectural distortion in the right breast is indeterminate. Additional views with po ssible ultrasound are recommended. This is more prominent, though present previously. Based on the Tyrer Cuzick model (a risk assessment model) the patients lifetime risk is 6.7% and her 10 year risk is 2.1%. According to the ACR, ACS, and NCCN guidelines, an annual breast MRI exam kristi g with mammogram is recommended if the patients lifetime risk is 20% or greater. This exam was interpreted at Station ID: [id number]. NOTE: For mammograms, a report in lay terms will be sent to the patient. Approximately 15% of breast malignancies will not be visualized mammographically. In the management of a palpable breast mass, a negative mammogram must not discourage biopsy of a clinically suspicious lesion. Electronically Signed By: James Suh M.D. lc/:02/10/2023 09:49:56 ACR BI-RADS Category 0: Incomplete 3340F PARENCHYMAL PATTERN: (A) - The breast(s) demonstrate(s) scattered fibroglandular densities. BI-RADS CATEGORY: (0) - 0 Mammo and US [id number] Immediate follow-up LATERALITY: (B)
== END 2023-02-10 07:46 | disposition home or self-care (01) ==
LOC: DI 07:45
DX: Z12.31 Encounter for screening mammogram for malignant neoplasm of breast (principal); R92.8 Other abnormal and inconclusive findings on diagnostic imaging of breast; R92.323 Mammographic fibroglandular density, bilateral breasts

== ENCOUNTER 2023-03-01 07:37 | Outpatient (CLI) | payer OTHER ==
--- NOTE | 2023-03-01 11:52 | Mammography Report ---
UNILATERAL RIGHT DIGITAL DIAGNOSTIC MAMMOGRAM 3D/2D WITH SPOT COMPRESSION: 03/01/2023 CLINICAL: Patient returns today to evaluate an architectural distortion in the right breast. Comparison is made to exams dated: 02/10/2023 mammogram, 08/20/2020 mammogram, 08/07/2018 mammogram, and 01/15/2016 mammogram - [facility]. There are scattered areas of fibroglandular density in the right breast (category b / 25%-50% glandul ar tissue). There is architectural distortion in the right breast at 11 o'clock posterior depth. No other significant masses or calcifications are seen in the breast. IMPRESSION: INCOMPLETE: NEEDS ADDITIONAL IMAGING EVALUATION The architectural distortion in the right breast is indeterminate. A targeted ultrasound is recommended and will immediately follow. Based on the Tyrer Cuzick model (a risk assessment model) the patient's lifetime risk is 6.6% and her 10 year risk is 2.3%. According to the ACR, ACS, and NCCN guidelines, an annual breast MRI exam kristi g with mammogram is recommended if the patients lifetime risk is 20% or greater. This exam was interpreted at Station ID: [id number]. NOTE: For mammograms, a report in lay terms will be sent to the patient. Approximately 15% of breast malignancies will not be visualized mammographically. In the management of a palpable breast mass, a negative mammogram must not discourage biopsy of a clinically suspicious lesion. Electronically Signed By: Denis Condon M.D. slc/:03/01/2023 08:20:08 ACR BI-RADS Category 0: Incomplete 3340F PARENCHYMAL PATTERN: (A) - The breast(s) demonstrate(s) scattered fibroglandular densities. BI-RADS CATEGORY: (0) - 0 Ultrasound [id number] Immediate follow-up LATERALITY: (B)
--- NOTE | 2023-03-01 11:53 | Ultrasound Report ---
LIMITED ULTRASOUND OF RIGHT BREAST AND AXILLA: 03/01/2023 CLINICAL: Patient returns today to evaluate a focal asymmetry in the right breast. Comparison is made to exams dated: 03/01/2023 mammogram, 02/10/2023 mammogram, and 08/20/2020 mammogram - [facility]. Color flow and real-time ultrasound of the right breast 9-10 o'clock, and axilla regions were perform ed. Aj scale images of the real-time examination were reviewed. There is a 1.1 cm x 1 cm x 0.8 cm taller than wide irregular mass in the right breast at 10 o'clock p osterior depth 11 cm from the nipple. This irregular mass is hypoechoic. This correlates with mammo graphy findings. Color flow imaging demonstrates that there is an adjacent vascularity. No significant abnormalities were seen sonographically in the right axilla. IMPRESSION: SUSPICIOUS OF MALIGNANCY The 1.1 cm x 1 cm x 0.8 cm taller than wide irregular mass in the right breast is at a high suspicion for malignancy. An ultrasound guided biopsy is recommended. No enlarged right axillary lymph nodes. Exam findings were discussed with the patient by Dr. Velez. This exam was interpreted at Station ID: [id number]. Electronically Signed By: Denis Condon M.D. [facility]/:03/01/2023 10:01:34 Ultrasound BI-RADS: 4c High suspicion of malignancy BI-RADS CATEGORY: (4c) - High Susp Biopsy [id number] Immediate follow-up LATERALITY: (R)
== END 2023-03-01 07:38 | disposition home or self-care (01) ==
LOC: DI 07:37
PROVIDERS: ATTEND Family Medicine
DX: R92.321 Mammographic fibroglandular density, right breast (principal); N63.11 Unspecified lump in the right breast, upper outer quadrant

== ENCOUNTER 2023-03-06 09:43 | Outpatient (CLI) | payer OTHER ==
[~2023-03-06 09:43] MED LIST: LIDOCAINE 1%-EPI 1:100000 50 ML VIAL ONE; LIDOCAINE-MPF 1% 5 ML VIAL ONE
[2023-03-06] MEDS: LIDOCAINE-MPF 1% 5 ML VIAL TD ONE (11:22)
[2023-03-06] MEDS: LIDOCAINE 1%-EPI 1:100000 50 ML VIAL TD ONE (11:23)
--- NOTE | 2023-03-07 12:19 | Mammography Report ---
UNILATERAL RIGHT DIGITAL DIAGNOSTIC MAMMOGRAM POST-PROCEDURE IMAGING FOR MARKER PLACEMENT: 03/06/2023 CLINICAL: Post right breast ultrasound biopsy clip placement imaging. Comparison is made to exams dated: 03/01/2023 mammogram, 02/10/2023 mammogram, 08/20/2020 mammogram, 08/07 mammogram, and 01/15/2016 mammogram - [facility]. There are scattered areas of fibroglandular density in the right breast (category b / 25%-50% glandul ar tissue). There is a marker clip in the appropriate position in the right breast at 10 o'clock posterior depth. This marker clip placement is at the biopsy site. IMPRESSION: POST PROCEDURE MAMMOGRAM FOR MARKER PLACEMENT There was a successful marker clip placement in the right breast posterior depth. Based on the Tyrer Cuzick model (a risk assessment model) the patient's lifetime risk is 6.6% and her 10 year risk is 2.3%. According to the ACR, ACS, and NCCN guidelines, an annual breast MRI exam kristi g with mammogram is recommended if the patients lifetime risk is 20% or greater. This exam was interpreted at Station ID: [id number]. NOTE: For mammograms, a report in lay terms will be sent to the patient. Approximately 15% of breast malignancies will not be visualized mammographically. In the management of a palpable breast mass, a negative mammogram must not discourage biopsy of a clinically suspicious lesion. Electronically Signed By: Kevin venegas/penrad:03/06/2023 16:49:18 ACR BI-RADS Category Post-procedure mammogram for marker placement PARENCHYMAL PATTERN: (A) - The breast(s) demonstrate(s) scattered fibroglandular densities. BI-RADS CATEGORY: () - RECOMMENDATION: (ADDMAM) - Recommend additional mammographic views. recall n/a LATERALITY: (B)
--- NOTE | 2023-03-13 11:27 | Ultrasound Report ---
ULTRASOUND GUIDED BIOPSY RIGHT BREAST USING VACUUM DEVICE WITH MARKING DEVICE INSERTED AND POST DIGIT AL MAMMOGRAPHIC IMAGIN03/06/2023 CLINICAL: Right breast mass. PATIENT CONSENT: Risks (minor bleeding, infection, vasovagal reaction and repeat procedure), benefits and alternatives were explained to the patient and written informed consent was obtained. Correlation is made to exams dated: 03/01/2023 ultrasound, 03/01/2023 mammogram, 02/10/2023 mammogram, mammogram, 08/07/2018 mammogram, and 01/15/2016 mammogram - [facility]. An ultrasound guided biopsy using real-time ultrasound was performed for the area of architectural di stortion located in the right breast at 10 o'clock posterior depth. This was described on the previo us ultrasound report. The skin was prepped in the usual manner. Local anesthetic was administered t o the access site. A small incision was made in the breast. The abnormality was approached from the lateral aspect. A biopsy needle was placed adjacent to the abnormality under ultrasound guidance. Once the needle was documented to be in the correct location, four specimens were obtained using the Mammotome biopsy system. The patient received additional local anesthetic during the procedure. A c lip was inserted into the biopsy cavity. A skin adhesive was applied to the access site. Post proce dure digital mammographic imaging demonstrates the location device at the targeted area. The specime ns were sent to the laboratory for pathological analysis. IMPRESSION: ULTRASOUND GUIDED BIOPSY MALIGNANT Ultrasound guided biopsy of the area of architectural distortion in the right breast at 10 o'clock po sterior depth was successful with no apparent post procedure complications. Pathology indicates malignant invasive lobular carcinoma (ILC). Pathology results are concordant wit h imaging findings. A surgical/oncologic consultation is recommended. Recommend breast MRI for furt her evaluation of extent of disease. This exam was interpreted at Station ID: [id number]. Kevin Bess M.D. Veronica Paz M.D., PH.D ,/:03/11/2023 00:30:05 BI-RADS CATEGORY: () - Unspecified - other recall n/a LATERALITY: (B)
== END 2023-03-06 09:44 | disposition home or self-care (01) ==
LOC: DI 09:43
PROVIDERS: ATTEND Family Medicine
DX: R92.321 Mammographic fibroglandular density, right breast (principal); C50.911 Malignant neoplasm of unspecified site of right female breast; Z17.0 Estrogen receptor positive status [ER+]
CPT/HCPCS: 19083; 77065; J3490

== ENCOUNTER 2023-05-26 09:38 | Outpatient (CLI) | payer OTHER ==
--- NOTE | 2023-05-26 10:05 | Sleep Patient Instructions ---
Sleep Center Visit Summary - Patient Visit Information Reason for Visit: Annual follow-up - Patient Instructions Additional Instructions: You will continue with CPAP therapy with pressure set at 4-9 cmH2O. A supply prescription will be updated with your DME. We encourage you to continue to try to lose weight. Please follow up with the sleep care office in 1 year. - Clinic Information Contact: [facility] [address] [place] [address] [email or web address] T: [phone]
--- NOTE | 2023-05-26 10:08 | SLEEP CARE CONSULTATION ---
Information from patient questionnaire entered by Brooke Sandoval. I have reviewed and concur with the information entered by Brooke Sandoval. This document represents the service I personally performed and the decisions made by , Nury Denson ARNP. History of Present Illness Service Date and Time: 05/26/2023 0938 Previous diagnosis: Severe, Obstructive Sleep Apnea-Hypopnea Syndrome AHI: 40.3 Reason for follow up: annual (LAST SEEN 04/2022) Equipment type: CPAP (RESMED Airsense 11 s/u 11/2020) Equipment obtained from: [employer] (getting supplies) Mask style: Nasal pillows Backup mask available: Yes Last cushion change: 2 weeks Year and Where: 2017 [facility] Type of Sleep Study: Polysomnography HPI additional information: SISSY BRUNO was diagnosed to have severe, AHI 40.3, obstructive sleep apnea- hypopnea syndrome and returned today for CPAP therapy annual follow-up. Sleep Study - Results Type of Sleep Study: Polysomnography Year and Where: 2017 [facility] CPAP Compliance Data - Data Reviewed with Patient Average duration of nightly device use: 7 HRS 27 MINS Compliance rate %: 100 (05/24/22-05/23/23; 365/365 days used) Current pressure setting (cmH2O): 4-9 Average residual AHI: 0.1 Central apnea: 0 Obstructive apnea: 0 Average large leak: 1.4 L/min Subjective Patient concerns: denies: aerophagia, mask discomfort, air blowing in eyes, mask leak noise, condensation in mask/hose, nasal congestion, dry mouth, nose, throat, epistaxis Observed to snore while using device: No Current pressure setting perceived as: comfortable On therapy, patient: reports: sleeping better, awakening more refreshed, being more awake and alert during the day, more rested overall. denies: drowsiness while driving Initial [place] Sleepiness Scale score: 7 (in 2018) Current [place] Sleepiness Scale score: 0 Allergies and Home Medications Known drug allergies: Yes (as listed) Drug allergies reviewed: Yes Home medication list reviewed: Yes (no changes) Allergy and home medication list: Allergies codeine Allergy (Verified 05/24/23 14:39) Hives Penicillins Allergy (Verified 05/24/23 14:39) Hives Sulfa (Sulfonamide Antibiotics) Allergy (Verified 05/24/23 14:39) Hives Review of Systems Review of systems same as previous: No (breast cancer surgery 2 wks ago) Physical Exam Vital signs obtained and entered by: NURY VERMA Blood Pressure: 146/88 Cuff size: regular (left forearm) Heart Rate: 68 O2 Saturation: 96 Height: 5 ft 2 in Weight: 238 lb 12.8 oz Body Mass Index: 43.7 BMI Classification: Morbidly Obese Impression and Plan 1. Obstructive Sleep Apnea-Hypopnea Syndrome, severe, with good treatment compliance and good apnea control. On CPAP therapy, the patient has better sleep quality and is more rested overall. Patient just had breast cancer surgery and states she is recovering well. She is using her CPAP regularly and even took it to the hospital as instructed to use postop. Patient has significant improvement of their sleep apnea and is satisfied with current CPAP therapy. Patient denies problems with oral dryness, nasal congestion, epistaxis, skin irritation or aerophagia. Patient's apnea severity and rationale for treatment to reduce apnea, improve sleep quality and reduce cardiovascular and cerebrovascular events was reviewed. I also reviewed the benefit of consistent device use of CPAP for hypertension, depression/anxiety. 2. Obesity, unspecified. Currently patients BMI is 43.7. Obesity increases the risk of apnea, CPAP pressure requirements and overall health risks especially cardiovascular and diabetes. Thus patient is advised to lose weight. * Continue auto CPAP pressure at 4-9 cmH2O * Update supply prescription * Notify me if snoring with mask or feeling that the pressure is too much or too little * Attempt to lose weight * Call this office if any problems using CPAP * Return for follow up in 12 months, or sooner if concerns arise Counseling Topics: Spare mask, Weight loss health impact Prescriptions: Device supplies Follow up with Sleep Care in: 1 year Visit Type: In Office Time Spent with Patient (minutes): 15 Provider Statement: I spent 100% of the Face to Face Visit with the patient with greater than 50% spent counseling the patient and coordination of care.
[2023-05-26 10:27] VITALS: BP 146/88; O2SAT 96
== END 2023-05-26 09:39 | disposition home or self-care (01) ==
LOC: SC 09:38
PROVIDERS: ATTEND Nurse Practitioner Family
DX: G47.33 Obstructive sleep apnea (adult) (pediatric) (principal); E66.01 Morbid (severe) obesity due to excess calories; Z68.41 Body mass index [BMI] 40.0-44.9, adult
CPT/HCPCS: 99212